=== PATIENT | male | born 1940 | race Caucasian/White ===

== ENCOUNTER 2017-01-07 11:45 | Outpatient (CLI) | payer OTHER ==
[~2017-01-07 11:45] MED LIST: ALEVE220 MG PO; ASPIRIN ADULT L81 M1 PO; ATENOLOL25 MG PO; ATORVASTATIN CA20 MG PO; HYDROCHLOROTHIA25 MG PO
--- NOTE | 2017-01-07 13:59 | DIAGNOSTIC IMAGING REPORT ---
PROCEDURE: MR UPPER EXTREMITY W/O CONT-LT INDICATION: LEFT SHOULDER PAIN, MASS ON HUMERUS ON XRAY TECHNIQUE: PD and FAT-SAT PD, axial, and coronal-oblique images. PD and STIR sagittal-oblique images. COMPARISON: Left shoulder x-ray from [facility] 12/24/2016. FINDINGS: Prominent motion artifacts. 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 There is superior subluxation of the humeral head with large full- thickness tear of the rotator cuff uncovering the humeral head. There is musculotendinous retraction of the rotator cuff with atrophy of the supraspinatus, infraspinatus and subscapularis muscles. There is also a chronic impaction fracture and to underlying cysts (1.4 cm) of the greater tuberosity. Suboptimal visualization of the labrum due to motion artifacts and possible superior labral tear. Bicipital tendon not well visualized through the notch suspicious for a tear. Coracoid impingement (2.5 mm). Moderate glenohumeral joint degenerative changes. IMPRESSION: 1. Prominent motion artifacts 2. 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 Large rotator cuff tear uncovering the entire humeral head associated with a musculotendinous retraction, muscular atrophy, superior subluxation of the humeral head, chronic impaction fracture of the greater tuberosity and underlying cyst formation 4. Coracoid impingement 5. Moderate glenohumeral joint degenerative changes 6. Bicipital tendon not well visualized through the notch, suspicious for a tear 7. Possible labral tear 8. No evidence of an osseous mass
== END 2017-01-07 23:00 | disposition home or self-care (01) ==
LOC: MRI SRH 11:45
DX: M19.012 Primary osteoarthritis, left shoulder (principal); M25.812 Other specified joint disorders, left shoulder; M75.102 Unspecified rotator cuff tear or rupture of left shoulder, not specified as traumatic; S43.002A Unspecified subluxation of left shoulder joint, initial encounter